=== PATIENT | female | born 1970 | race Caucasian/White ===

== ENCOUNTER → 2016-08-08 | Outpatient (CLI) | payer OTHER ==
--- NOTE | 2016-08-09 02:07 | REP ---
Clinical: Pain with recent trauma. Technique: AP, lateral, bilateral oblique and sunrise views of the right knee. Findings: Mild tricompartmental degenerative changes are appreciated including cortical irregularity and spurring/early osteophyte formation. Subchondral sclerosis and minimal joint space narrowing noted. Mild swelling and small effusion cannot be excluded. No definite acute fracture or dislocation. Impression: Mild tricompartmental degenerative changes appear chronic. Cannot exclude mild swelling and small effusion. No obvious acute fracture or dislocation. Signed by Alexandr Barron MD 08/09/2016 01:59 A
== END ==
LOC: M WUC 15:38
PROVIDERS: ATTEND Nurse Practitioner Family
DX: S83.91XA Sprain of unspecified site of right knee, initial encounter (principal); X58.XXXA Exposure to other specified factors, initial encounter; Y93.9 Activity, unspecified; Y92.9 Unspecified place or not applicable; Y99.8 Other external cause status

== ENCOUNTER → 2016-08-18 | Outpatient (CLI) | payer OTHER ==
--- NOTE | 2016-08-19 08:33 | REP ---
Right knee MRI: Comparison is a plain film study dated 08/08/2016. The studies performed with proton density, T2 and gradient echo data sets in sagittal, axial and coronal projections. There is a moderate joint effusion. There is no Rodriguez's cyst. There is mild heterogeneity of the patellar articular cartilage compatible with chondromalacia. 54 cartilage of the trochanter and medial lateral compartments is unremarkable. There is intermediate marrow signal likely from persisting right marrow. No marrow edema is identified. There is T2 signal in the fascial planes surrounding the knee compatible with soft tissue edema. The medial lateral menisci are unremarkable. The anterior posterior cruciate ligaments are unremarkable. The medial lateral collateral ligaments are unremarkable. The quadriceps and patellar tendons are unremarkable. Suprapatellar uptake outlined by the effusion. Impression: Mild patellar chondromalacia. Moderate joint effusion. Suprapatellar plica. There is T2 signal in the fascial planes surrounding the knee compatible with soft tissue edema. No fracture, ligament injury, tendon injury, or meniscal injury. Signed by Giles Mills MD 08/19/2016 08:23 A
== END ==
LOC: M RAD 17:11
PROVIDERS: ATTEND Nurse Practitioner Family
DX: M22.41 Chondromalacia patellae, right knee (principal); M25.461 Effusion, right knee

== ENCOUNTER → 2017-08-14 | Outpatient (REF) | payer OTHER ==
[2017-08-14 14:06] LABS: AMORPHOUS SEDIMENT SMALL (NEGATIVE); APPEARANCE, URINE HAZY (CLEAR); BACTERIA, URINE AUTO 2+ (NEGATIVE); BILIRUBIN, URINE AUTO NEGATIVE (NEGATIVE); BLOOD, URINE BLOOD 3+ (NEGATIVE); COLOR, URINE YELLOW (YELLOW); GLUCOSE, URINE (UA) AUTO NEGATIVE (NEGATIVE); KETONE, URINE AUTO NEGATIVE (NEGATIVE); LEUKOCYTE ESTERASE, URINE AUTO 2+ (NEGATIVE); NITRITE, URINE AUTO NEGATIVE (NEGATIVE); PROTEIN, URINE AUTO NEGATIVE (NEGATIVE); RBC, URINE AUTO 135 /HPF (0-3); SPECIFIC GRAVITY URINE AUTO 1.011 (1.002-1.035); SQUAMOUS EPITHELIAL CELL UR AU 0 /HPF (0-6); UROBILINOGEN, URINE AUTO 0.2 mg/dL (0.0-2.0); WBC, URINE AUTO 76 /HPF (0-3)
== END ==
LOC: M LAB REF 12:21
DX: N39.0 Urinary tract infection, site not specified (principal)

== ENCOUNTER → 2017-10-25 | Outpatient (REF) | payer OTHER ==
[2017-10-26 12:19] LABS: APPEARANCE, URINE HAZY (CLEAR); BACTERIA, URINE AUTO NEGATIVE (NEGATIVE); BILIRUBIN, URINE AUTO NEGATIVE (NEGATIVE); BLOOD, URINE BLOOD NEGATIVE (NEGATIVE); COLOR, URINE YELLOW (YELLOW); GLUCOSE, URINE (UA) AUTO NEGATIVE (NEGATIVE); KETONE, URINE AUTO NEGATIVE (NEGATIVE); LEUKOCYTE ESTERASE, URINE AUTO NEGATIVE (NEGATIVE); MUCUS, URINE SMALL (NEGATIVE); NITRITE, URINE AUTO NEGATIVE (NEGATIVE); PROTEIN, URINE AUTO NEGATIVE (NEGATIVE); RBC, URINE AUTO 1 /HPF (0-3); SPECIFIC GRAVITY URINE AUTO 1.016 (1.002-1.035); SQUAMOUS EPITHELIAL CELL UR AU 10 /HPF (0-6); UROBILINOGEN, URINE AUTO 0.2 mg/dL (0.0-2.0); WBC, URINE AUTO 1 /HPF (0-3)
== END ==
LOC: M LAB REF 11:53
DX: N39.0 Urinary tract infection, site not specified (principal)

== ENCOUNTER → 2020-08-31 | Outpatient (REF) | payer OTHER ==
[2020-08-31 17:35] LABS: AMORPHOUS SEDIMENT LARGE (NEGATIVE); APPEARANCE, URINE TURBID (CLEAR); BACTERIA, URINE AUTO NEGATIVE (NEGATIVE); BILIRUBIN, URINE AUTO NEGATIVE (NEGATIVE); BLOOD, URINE BLOOD NEGATIVE (NEGATIVE); COLOR, URINE YELLOW (YELLOW); GLUCOSE, URINE (UA) AUTO NEGATIVE (NEGATIVE); KETONE, URINE AUTO NEGATIVE (NEGATIVE); LEUKOCYTE ESTERASE, URINE AUTO NEGATIVE (NEGATIVE); NITRITE, URINE AUTO NEGATIVE (NEGATIVE); PROTEIN, URINE AUTO NEGATIVE (NEGATIVE); RBC, URINE AUTO 0 /HPF (0-3); SPECIFIC GRAVITY URINE AUTO 1.021 (1.002-1.035); SQUAMOUS EPITHELIAL CELL UR AU 0 /HPF (0-6); UROBILINOGEN, URINE AUTO 0.2 mg/dL (0.0-2.0); WBC, URINE AUTO 8 /HPF (0-3)
== END ==
LOC: M LAB REF 16:26
PROVIDERS: ATTEND Obstetrics & Gynecology
DX: N39.3 Stress incontinence (female) (male) (principal)

== ENCOUNTER → 2021-06-10 | Outpatient (CLI) | payer OTHER | LOC: M WUC 09:02 | PROVIDERS: ATTEND Physician Assistant | DX: R05.8 Other specified cough (principal) ==

== ENCOUNTER → 2022-03-17 | Outpatient (REF) | payer BC, OTHER ==
[2022-03-17 14:16] LABS: FOLLICLE STIMULATING HORMONE 59.3 mIU/mL; LUTEINIZING HORMONE 27.8 mIU/mL
== END ==
LOC: M LAB REF 12:07
PROVIDERS: ATTEND Physician Assistant Medical
DX: N95.1 Menopausal and female climacteric states (principal)

== ENCOUNTER → 2022-04-07 | Outpatient (REF) | payer BC, OTHER ==
[2022-04-07 20:07] LABS: ESTRADIOL 44.9 PG/ML; FOLLICLE STIMULATING HORMONE 38.5 mIU/mL; LUTEINIZING HORMONE 26.7 mIU/mL; PROGESTERONE 0.21 NG/ML; TOTAL 25(OH) VITAMIN D 39.4 NG/ML (30.0-100.0)
[2022-04-09 08:09] LABS: DEHYDROEPIANDROSTERONE SULFATE 61.9 ug/dL (41.2-243.7); HOMOCYST(E)INE SERUM 13.5 umol/L (0.0-14.5)
== END ==
LOC: M LAB REF 16:10
PROVIDERS: ATTEND Physician Assistant Medical
DX: Z12.39 Encounter for other screening for malignant neoplasm of breast (principal); R53.83 Other fatigue

== ENCOUNTER → 2022-05-01 | Outpatient (CLI) | payer BC, OTHER ==
[~2022-05-01] MED LIST: ADDE20CA3 PO; MULTTAB86 PO
== END ==
LOC: M LABSMTC 09:34
PROVIDERS: ATTEND Anesthesiology
DX: Z01.812 Encounter for preprocedural laboratory examination (principal); Z20.822 Contact with and (suspected) exposure to COVID-19

== ENCOUNTER → 2022-05-20 | Outpatient (REF) | payer BC ==
[2022-05-20 13:41] LABS: ESTRADIOL 136.2 PG/ML; LUTEINIZING HORMONE 22.5 mIU/mL; PROGESTERONE 0.58 NG/ML; TOTAL 25(OH) VITAMIN D 32.4 NG/ML (30.0-100.0)
[2022-05-21 08:09] LABS: DEHYDROEPIANDROSTERONE SULFATE 48.1 ug/dL (41.2-243.7); HOMOCYST(E)INE SERUM 12.1 umol/L (0.0-14.5)
== END ==
LOC: M LAB REF 12:05
PROVIDERS: ATTEND Physician Assistant Medical
DX: R53.83 Other fatigue (principal); Z79.890 Hormone replacement therapy